=== PATIENT | female | born 1980 | race Caucasian/White ===

== ENCOUNTER 2021-01-05 23:14 | Emergency (ER) | payer OTHER, SELFPAY ==
[2021-01-05 23:14] VITALS: BP 122/58; PULSE 110; RESP 18; TEMP 36.6; O2SAT 100; BMI 27.7
--- NOTE | 2021-01-05 23:32 | EDS_ITS ---
HPI History of Present Illness Chief Complaint: Lower Extremity Injury Narrative Narrative: Patient is a 40-year-old female who states that 1 week ago he tripped and fell down some stairs landing directly on her right knee. She states she went to her family doctor where she had x-rays and a CT scan which just showed fluid on the joint but no signs of infection. She reports she had some fluid drained from the knee and then she continued to ice the knee but has noted repeat swelling and persistent pain. She denies any repeat trauma and she denies any fevers or chills but secondary to the pain and swelling presents for evaluation. [facility] Medical History Depression Diabetes GERD (gastroesophageal reflux disease) Neuropathy Home Medications gabapentin 400 mg PO TID 01/05/21 [History Last Taken Unknown] levothyroxine 112 mcg PO DAILY 01/05/21 [History Last Taken Unknown] metformin 1,000 mg PO QHS 01/05/21 [History Last Taken Unknown] pantoprazole 40 mg PO DAILY 01/05/21 [History Last Taken Unknown] semaglutide [Ozempic] 1 mg SUBCUT MO 01/05/21 [History Last Taken Unknown] tramadol 50 mg PO Q6H PRN PRN 01/05/21 [History Last Taken Unknown] venlafaxine 75 mg PO DAILY 01/05/21 [History Last Taken Unknown] oxycodone-acetaminophen [Percocet] 1 tab PO Q6H PRN 3 Days #12 tab 01/06/21 [Rx Last Taken Unknown] Allergy/AdvReac Type Severity Reaction Status Date / Time Penicillins Allergy Intermediate Other Verified 01/05/21 23:16 Surgical History (Updated 01/05/21 @ 23:20 by Monserrat Chaparro) H/O foot surgery H/O: hysterectomy History of appendectomy History of cholecystectomy History of tonsillectomy Previous back surgery Social History Smoking Status: Never smoker ROS ROS ED Constitutional Constitutional ED: Denies chills or fever(s) Cardiovascular Cardiovascular: Denies chest pain Respiratory/Chest Respiratory/Chest: Denies cough or dyspnea Gastrointestinal Gastrointestinal: Denies abdominal pain, diarrhea, nausea or vomiting Genitourinary Genitourinary ED: Denies dysuria Musculoskeletal Musculoskeletal: Reports other Details: Positive right knee pain ; Denies myalgias Integumentary Reports Abrasions; Denies rash Neurologic Neurologic: Denies headache(s) Hematologic/Lymphatic Hematologic/Lymphatic: Denies easy bleeding or easy bruising EXAM Physical Exam Const Vital Signs: 01/05/21 23:14 Temperature 98 F Temperature Source Oral Pulse Rate 110 H Respiratory Rate 18 Blood Pressure 122/58 H Blood Pressure Mean 79 Pulse Ox 100 Positive well nourished and well developed General Appearance ED: well developed Eyes PERRL and EOMs intact bilaterally Neck supple Resp normal respiratory effort and clear to auscultation bilaterally Cardio regular rhythm Rate: other Other Details: Slightly tachycardic rate with regular rhythm Extremity Extremity Narrative: Patient has a superficial abrasion to the anterior aspect of the right knee with small joint effusion noted. There is no obvious bony deformity noted. Patellar tendon is intact knee ligaments are stable. There is diffuse pain with palpation. There are no overlying soft tissue changes to suggest infection or septic joint. Neuro oriented x3 and CN's II-XII intact bilaterally Sensorium / Orientation: alert Psych mental status grossly normal Skin Skin Narrative: Soft tissue swelling with abrasion to the right knee as documented above MDM MDM MDM Narrative Medical decision making narrative: Patient presented to the ER afebrile with no report of repeat trauma. She had mild soft tissue swelling but no signs of a septic joint or infected bursa and therefore do not feel there is need for laboratory studies. I did elect to repeat an x-ray which showed the mild soft tissue swelling but was otherwise normal. As the swelling is minimal in nature I do not feel there is need for repeat injection/drainage. Patient be given an Andres wrap to compress the joint space and hopefully reabsorb the fluid. She can follow-up with orthopedics on an outpatient basis if the symptoms fail to improve with symptomatic care Radiography Diagnostic Testing: Clinical Impression(s) from Imaging Studies Knee X-Ray 01/06/21 00:00 IMPRESSION: Soft tissue swelling at the anterior knee. Mild degenerative disease. No acute fracture or subluxation. Electronically Signed: Chelly Smith MD at 0:59 EST , Service support , Discharge Plan Triage Chief Complaint: Lower Extremity Injury ED Provider: Jeronimo Wilhelm Dx/Rx/DC Orders Clinical Impression: Effusion of right knee, Contusion of right knee Instructions: Bone Contusion, ED Knee Effusion Prescriptions: New oxycodone-acetaminophen [Percocet] 5-325 mg tablet 1 tab PO Q6H PRN (Reason: pain) 3 Days Qty: 12 RF: 0 No Action venlafaxine 75 mg capsule,extended release 24hr 75 mg PO DAILY RF: 0 gabapentin 400 mg capsule 400 mg PO TID RF: 0 tramadol 50 mg tablet 50 mg PO Q6H PRN PRN (Reason: Pain) RF: 0 pantoprazole 40 mg tablet,delayed release (DR/EC) 40 mg PO DAILY RF: 0 metformin 1,000 mg tablet 1,000 mg PO QHS RF: 0 levothyroxine 112 mcg Tablet 112 mcg PO DAILY RF: 0 Ozempic 1 mg/dose (4 mg/3 mL) pen injector 1 mg SUBCUT MO RF: 0 Primary Care Provider: Selene Saunders Referrals: Selene Saunders DO [Primary Care Provider] - Diaz Karimi DO [STAFF PHYSICIAN] - 1 Week if not improving Disposition Disposition: Home, Self Care
[2021-01-05] MEDS: morphine 10 MG/ML Syringe 8 MG IM (23:36)
[2021-01-05] MEDS: Ondansetron ODT 4 MG Tablet PO (23:36)
--- NOTE | 2021-01-06 | RAD_ITS ---
STUDY: X-RAY - RIGHT KNEE REASON FOR EXAM: Female, 40 years old. pain TECHNIQUE: 3 view(s) of the knee. COMPARISON: None. FINDINGS: Normal visualized distal femur. Mild osteophyte at the intercondylar eminence of tibia. Otherwise normal visualized proximal tibia and fibula. Normal proximal tibiofibular articulation. There is no demonstrated fracture. Normal medial femorotibial compartment. Normal lateral femorotibial compartment. Normal patellofemoral articulation. There is no demonstrated joint effusion. There is soft tissue swelling at the anterior knee. RAD/Knee 3 Views IMPRESSION: Soft tissue swelling at the anterior knee. Mild degenerative disease. No acute fracture or subluxation. Electronically Signed: Chelly Smith MD at 0:59 EST , Service support ,
== END 2021-01-06 01:45 | disposition home or self-care (01) ==
PROVIDERS: Emergency Provider Emergency Medicine; PCP Family Medicine
DX: S80.01XA Contusion of right knee, initial encounter (principal); W10.9XXA Fall (on) (from) unspecified stairs and steps, initial encounter; Y93.9 Activity, unspecified; Y92.9 Unspecified place or not applicable; Y99.9 Unspecified external cause status; M25.461 Effusion, right knee; M17.11 Unilateral primary osteoarthritis, right knee; K21.9 Gastro-esophageal reflux disease without esophagitis; E11.40 Type 2 diabetes mellitus with diabetic neuropathy, unspecified; Z79.84 Long term (current) use of oral hypoglycemic drugs; Z79.899 Other long term (current) drug therapy
CPT/HCPCS: 73562; 96372; 99283